=== PATIENT | male | born 1930 | race Caucasian/White ===

== ENCOUNTER 2017-10-13 15:46 | Emergency (ER) | payer MEDICARE, BC ==
[~2017-10-13] VITALS: Ht 170.2 cm; Wt 70.0 kg
[~2017-10-13 15:46] MED LIST: ASPIRIN LOW DOS81 M2 PO; ATORVASTATIN CA80 MG PO; BL ADULT ASA81 MG OR; CO Q-10200 M1 PO; LORTAB5 OR; MEDDOSEPAK OR; METAMUCIL28 %; NEXIUM20 M1 OR; OMEPRAZOLE20 M1 PO; ULTRAM50 MG OR; VITAMIN D-32000 UNIT PO
[2017-10-13] MEDS ORDERED: SENNA-TABS8.6 MG PO (18:47)
[2017-10-13 18:48] LABS: HEMATOCRIT 45.3 % (39.0-50.0); HEMOGLOBIN 15.1 g/dl (14.0-18.0); IMMATURE GRANULOCYTES 0.3 % (0.0-1.0); MEAN CELL VOLUME 94.8 fL CALC (80.0-100.0); MEAN CORPUSCULAR HGB 31.6 pG CALC (26.0-32.0); MEAN CORPUSCULAR HGB CONC 33.3 g/L CALC (32.0-36.0); NEUT# 4.87 thou/uL (1.82-7.42); RED BLOOD COUNT 4.78 mill/uL (4.70-6.10); RED CELL DISTRI WIDTH 15.8 % (11.5-15.5)
[2017-10-13] MEDS ORDERED: AMOXICILLIN250 M1 PO (18:48)
[2017-10-13] MEDS ORDERED: TRAZODONE50 MG PO (18:49)
[2017-10-13 19:00] LABS: ALBUMIN 3.7 g/dL (3.2-5.0); BILIRUBIN, TOTAL 0.6 mg/dL (0.0-1.4); CALCIUM 9.8 mg/dL (8.4-10.2); CREATININE 1.4 mg/dL (0.7-1.3); POTASSIUM 4.4 mmol/l (3.5-5.1); TOTAL PROTEIN 6.7 g/dL (6.3-8.2)
[2017-10-13 19:39] LABS: INFLUENZA A NONE DETECTED (NONE DETECT); INFLUENZA B NONE DETECTED (NONE DETECT)
[2017-10-13 20:43] LABS: URINE BILIRUBIN - DIPSTICK NEGATIVE (NEGATIVE); URINE BLOOD DIPSTICK NEGATIVE (NEGATIVE); URINE CLARITY CLEAR; URINE COLOR YELLOW; URINE GLUCOSE - DIPSTICK NEGATIVE (NEGATIVE); URINE KETONE NEGATIVE (NEGATIVE); URINE LEUK ESTERASE NEGATIVE (Negative); URINE NITRITE - DIPSTICK NEGATIVE (Negative); URINE PROTEIN - DIPSTICK NEGATIVE (NEG-TRACE); URINE SPECIFIC GRAVITY 1.025; URINE UROBILINOGEN - DIPSTICK 0.2 E.U./dL (0.2)
[2017-10-13] MEDS ORDERED: AMOXICILLIN500 MG PO (21:44)
[2017-10-13 21:59] VITALS: BP 152/71
== END 2017-10-13 22:09 | disposition home or self-care (01) ==
LOC: ED 15:46
PROVIDERS: Emergency Medicine
DX: J02.0 Streptococcal pharyngitis (principal); J90 Pleural effusion, not elsewhere classified; J98.11 Atelectasis; R06.02 Shortness of breath; R05 Cough

== ENCOUNTER 2018-09-02 13:00 | Inpatient (IN) | payer MEDICARE, BC ==
[~2018-09-02] VITALS: Ht 170.2 cm; Wt 75.9 kg
[~2018-09-02 13:00] MED LIST changes: +AMOXICILLIN250 M1 PO; +AMOXICILLIN500 MG PO; +SENNA-TABS8.6 MG PO; +TRAZODONE50 MG PO
[2018-09-02] MEDS ORDERED: FINASTERIDE5 MG PO (13:25)
[2018-09-02 13:47] LABS: HEMATOCRIT 39.9 % (39.0-50.0); HEMOGLOBIN 13.4 g/dl (14.0-18.0); IMMATURE GRANULOCYTES 0.3 % (0.0-5.0); MEAN CELL VOLUME 96.8 fL CALC (80.0-100.0); MEAN CORPUSCULAR HGB 32.5 pG CALC (26.0-32.0); MEAN CORPUSCULAR HGB CONC 33.6 g/L CALC (32.0-36.0); NEUT# 3.98 thou/uL (1.82-7.42); RED BLOOD COUNT 4.12 mill/uL (4.70-6.10); RED CELL DISTRI WIDTH 13.9 % (11.5-15.5)
[2018-09-02 13:58] LABS: ALBUMIN 3.5 g/dL (3.2-5.0); ALKALINE PHOSPHATASE 113 u/l (38-126); ANION GAP 11 (6-22 (CALC)); BILIRUBIN, TOTAL 0.6 mg/dL (0.0-1.4); BUN 21 mg/dL (8-23); BUN/CREATININE RATIO 13 (12-20 (CALC)); CARBON DIOXIDE 24 mmol/l (22-30); CHLORIDE 104 mmol/l (95-108); CREATININE 1.6 mg/dL (0.7-1.3); GFR 41 ML/MIN (>=60 (CALC)); GFR FOR AFR.AMER. 49 ML/MIN (>=60 (CALC)); POTASSIUM 4.4 mmol/l (3.5-5.1); SGOT/AST 43 u/l (19-48); SODIUM 135 mmol/l (137-146)
[2018-09-02 14:09] LABS: INFLUENZA A NONE DETECTED (NONE DETECT); INFLUENZA B NONE DETECTED (NONE DETECT)
[2018-09-02 16:49] VITALS: BP 136/56
[2018-09-02 20:15] VITALS: BP 130/70
[2018-09-03 04:17] VITALS: BP 116/65
[2018-09-03 04:59] LABS: HEMATOCRIT 39.3 % (39.0-50.0); HEMOGLOBIN 13.2 g/dl (14.0-18.0); IMMATURE GRANULOCYTES 0.8 % (0.0-5.0); MEAN CORPUSCULAR HGB 32.6 pG CALC (26.0-32.0); MEAN CORPUSCULAR HGB CONC 33.6 g/L CALC (32.0-36.0); NEUT# 4.78 thou/uL (1.82-7.42); RED BLOOD COUNT 4.05 mill/uL (4.70-6.10); RED CELL DISTRI WIDTH 13.9 % (11.5-15.5)
[2018-09-03 05:15] LABS: CREATININE 1.5 mg/dL (0.7-1.3); POTASSIUM 4.9 mmol/l (3.5-5.1)
[2018-09-03 08:08] VITALS: BP 139/80
[2018-09-03 11:35] VITALS: BP 139/60
[2018-09-03 12:51] LABS: URINE BILIRUBIN - DIPSTICK NEGATIVE (NEGATIVE); URINE BLOOD DIPSTICK NEGATIVE (NEGATIVE); URINE COLOR YELLOW; URINE GLUCOSE - DIPSTICK NEGATIVE (NEGATIVE); URINE KETONE TRACE mg/dL (NEGATIVE); URINE LEUK ESTERASE NEGATIVE (NEGATIVE); URINE NITRITE - DIPSTICK NEGATIVE (Negative); URINE PH 5.5 (4.5-8.0); URINE PROTEIN - DIPSTICK NEGATIVE (NEG-TRACE); URINE UROBILINOGEN - DIPSTICK 0.2 E.U./dL (0.2)
[2018-09-03 12:53] LABS: URINE CLARITY CLEAR
[2018-09-03 16:10] VITALS: BP 112/56
[2018-09-03 20:00] VITALS: BP 125/62
[2018-09-04 00:33] VITALS: BP 134/62
[2018-09-04 05:13] LABS: HEMATOCRIT 36.7 % (39.0-50.0); HEMOGLOBIN 12.4 g/dl (14.0-18.0); IMMATURE GRANULOCYTES 0.8 % (0.0-5.0); MEAN CELL VOLUME 96.6 fL CALC (80.0-100.0); MEAN CORPUSCULAR HGB 32.6 pG CALC (26.0-32.0); MEAN CORPUSCULAR HGB CONC 33.8 g/L CALC (32.0-36.0); NEUT# 14.26 thou/uL (1.82-7.42); RED BLOOD COUNT 3.8 mill/uL (4.70-6.10); RED CELL DISTRI WIDTH 14.1 % (11.5-15.5)
[2018-09-04 05:26] VITALS: BP 126/56
[2018-09-04 05:38] LABS: CREATININE 1.8 mg/dL (0.7-1.3); POTASSIUM 4.8 mmol/l (3.5-5.1)
[2018-09-04 08:38] VITALS: BP 134/49
[2018-09-04 12:10] VITALS: BP 117/56
[2018-09-04 15:28] VITALS: BP 127/53
[2018-09-04 20:00] VITALS: BP 133/60
[2018-09-05] VITALS: BP 137/66
[2018-09-05 05:20] VITALS: BP 125/57
[2018-09-05 05:31] LABS: HEMATOCRIT 39.8 % (39.0-50.0); HEMOGLOBIN 13.3 g/dl (14.0-18.0); MEAN CELL VOLUME 97.3 fL CALC (80.0-100.0); MEAN CORPUSCULAR HGB 32.5 pG CALC (26.0-32.0); MEAN CORPUSCULAR HGB CONC 33.4 g/L CALC (32.0-36.0); NEUT# 14.39 thou/uL (1.82-7.42); RED BLOOD COUNT 4.09 mill/uL (4.70-6.10); RED CELL DISTRI WIDTH 14.5 % (11.5-15.5)
[2018-09-05 05:53] LABS: CREATININE 1.4 mg/dL (0.7-1.3); POTASSIUM 4.7 mmol/l (3.5-5.1)
[2018-09-05 09:11] VITALS: BP 128/53
[2018-09-05 11:32] VITALS: BP 143/63
[2018-09-05 15:00] VITALS: BP 128/65
[2018-09-05 19:06] VITALS: BP 132/59
[2018-09-06 00:05] VITALS: BP 154/67
[2018-09-06 04:44] VITALS: BP 122/62
[2018-09-06 05:17] LABS: HEMATOCRIT 41.1 % (39.0-50.0); HEMOGLOBIN 13.7 g/dl (14.0-18.0); IMMATURE GRANULOCYTES 1.3 % (0.0-5.0); MEAN CELL VOLUME 97.4 fL CALC (80.0-100.0); MEAN CORPUSCULAR HGB 32.5 pG CALC (26.0-32.0); MEAN CORPUSCULAR HGB CONC 33.3 g/L CALC (32.0-36.0); NEUT# 12.5 thou/uL (1.82-7.42); RED BLOOD COUNT 4.22 mill/uL (4.70-6.10); RED CELL DISTRI WIDTH 14.6 % (11.5-15.5)
[2018-09-06 05:29] LABS: ALBUMIN 3.4 g/dL (3.2-5.0); BILIRUBIN, TOTAL 0.4 mg/dL (0.0-1.4); CREATININE 1.5 mg/dL (0.7-1.3); MAGNESIUM 2.1 mg/dL (1.6-2.3); POTASSIUM 4.6 mmol/l (3.5-5.1); TOTAL PROTEIN 6.6 g/dL (6.3-8.2)
[2018-09-06 09:21] VITALS: BP 127/60
[2018-09-06 11:45] VITALS: BP 131/62
[2018-09-06 16:02] VITALS: BP 140/74
[2018-09-06 20:12] VITALS: BP 146/68
[2018-09-07 00:45] VITALS: BP 143/68
[2018-09-07 04:00] VITALS: BP 141/67
[2018-09-07 09:28] VITALS: BP 123/50
[2018-09-07 11:09] VITALS: BP 119/54
[2018-09-07 15:33] VITALS: BP 132/59
[2018-09-07 19:07] VITALS: BP 137/69
[2018-09-08 00:17] VITALS: BP 147/71
[2018-09-08 05:09] VITALS: BP 132/69
[2018-09-08 09:02] VITALS: BP 120/52
[2018-09-08] MEDS ORDERED: DUONEB IN (12:52)
[2018-09-08] MEDS ORDERED: CIPROFLOXACIN500 M1 PO (12:52)
[2018-09-08] MEDS ORDERED: MEDDOSEPAK PO (13:11)
[2018-09-09] MEDS ORDERED: CODEINE/GUAIFEN1 SOL PO (03:43)
[2018-09-09] MEDS ORDERED: PROVENTIL HFA IN (03:44)
== END 2018-09-08 16:00 | disposition home health service (06) | DRG 178 ==
LOC: ED 13:00 → ED-I 13:19 → ED 15:19 → MS2 15:20
PROVIDERS: Emergency Medicine; Internal Medicine Nephrology; Nurse Practitioner Family; ADMIT Internal Medicine; ATTEND Internal Medicine
DX: J15.6 Pneumonia due to other Gram-negative bacteria (principal); N17.9 Acute kidney failure, unspecified; N18.3 Chronic kidney disease, stage 3 (moderate); E78.5 Hyperlipidemia, unspecified; I25.10 Atherosclerotic heart disease of native coronary artery without angina pectoris; K22.70 Barrett's esophagus without dysplasia; N40.0 Benign prostatic hyperplasia without lower urinary tract symptoms; Z95.1 Presence of aortocoronary bypass graft; Z79.899 Other long term (current) drug therapy

== ENCOUNTER 2018-09-09 01:54 | Emergency (ER) | payer MEDICARE, BC ==
[~2018-09-09] VITALS: Ht 170.2 cm; Wt 80.0 kg
[~2018-09-09 01:54] MED LIST changes: +CIPROFLOXACIN500 M1 PO; +DUONEB IN; +FINASTERIDE5 MG PO; +MEDDOSEPAK PO
[2018-09-09] MEDS ORDERED: CODEINE/GUAIFEN1 SOL PO (03:43)
[2018-09-09] MEDS ORDERED: PROVENTIL HFA IN (03:44)
[2018-09-09 03:51] VITALS: BP 126/60
== END 2018-09-09 03:51 | disposition home or self-care (01) ==
LOC: ED 01:54
DX: R05 Cough (principal)